=== PATIENT | female | born 1985 | race Caucasian/White ===

== ENCOUNTER 2020-08-09 12:32 | Inpatient (IN) | payer MEDICAID, SELFPAY ==
[2020-08-09 13:07] VITALS: BP 145/110; PULSE 85; RESP 18; TEMP 36.7; O2SAT 96; BMI 49.6
[2020-08-09 13:42] LABS: Basophils # 0.1 10^3/uL (0.0-0.1); Basophils % 0.7 %; Eosinophils # 0.3 10^3/uL (0.0-0.8); Hematocrit 48.1 % (37.0-47.0); Hemoglobin 15.6 g/dL (11.5-15.3); Lymphocytes # 2.3 10^3/uL (0.8-4.8); Lymphocytes % 23.2 %; Mean Corpuscular HGB Conc 32.4 g/dL (30.0-36.0); Mean Corpuscular Hemoglobin 28.2 pg (28.0-34.0); Mean Corpuscular Volume 86.8 fL (81-99); Mean Platelet Volume 9.5 fL (7.4-10.4); Monocytes # 0.6 10^3/uL (0.2-0.9); Monocytes % 6.4 %; Neutrophils # 6.62 10^3/uL (1.8-7.7); Nucleated Red Blood Cells % 0 %; Platelet Count 388 10^3/cmm (130-400); Red Blood Count 5.54 10^6/uL (4.1-5.3); Red Cell Distribution Width 12.8 % (12.1-15.1)
[2020-08-09 14:00] LABS: Alanine Aminotransferase 36 U/L (0-33); Albumin Level 4.4 g/dL (3.5-5.2); Alkaline Phosphatase 90 IU/L (35-105); Anion Gap 17.1 (5-19); Aspartate Amino Transferase 22 U/L (0-32); Blood Urea Nitrogen 10 mg/dL (6-20); Calcium 9.3 mg/dL (8.5-10.5); Carbon Dioxide 22 mmol/L (22-29); Chloride 102 mmol/L (98-107); Globulin 3.3 g/dL (1.3-4.6); Glomerular Filtration Rate 115.1 mL/min (90-130); Glucose 86 mg/dL (65-115); Osmolality Calculated 282 mOsm/kg (285-295); Potassium 4.1 mmol/L (3.5-5.1); Sodium 137 mmol/L (136-145); Total Bilirubin 0.7 mg/dL (0.15-1.2); Total Protein 7.7 g/dL (6.6-8.7)
[2020-08-09 14:00] LABS: HCG Qualitative Urine. Negative (Negative); Urine Appearance Hazy (CLEAR); Urine Color Yellow (Yellow)
[2020-08-09 14:01] LABS: Add Urine Microscopic? YES; Bilirubin Urine Neg (Negative); Blood Urine Neg (Negative); Glucose Urine UA Norm (Normal); Ketones Urine Negative (Negative); Leukocyte Esterase Urine 1+ (Negative); Nitrate Urine Negative (Negative); Protein Urine Neg (Negative); Urobilinogen Urine Norm (Negative); pH Urine 5 (5-7)
[2020-08-09 14:05] LABS: Amphetamines Screen Urine Negative (Negative); Barbiturates Screen Urine Negative (Negative); Benzodiazepines Screen Urine Negative (Negative); Cocaine Screen Urine Negative (Negative); Opiate Screen Urine Negative (Negative); PCP Screen Urine Negative (Negative); THC Screen Urine Negative (Negative)
[2020-08-09 14:08] LABS: Bacteria Urine 3+ /hpf; Squamous Epithelial Cell Urine 15-25 /hpf (0-5)
[2020-08-09 14:13] LABS: RBC Urine 0-4 /hpf (0-2)
[2020-08-09 14:14] LABS: Add Urine Culture? No; Trichomonas Urine 1+ /hpf
[2020-08-09 14:21] LABS: Acetaminophen < 5.0 ug/mL (10-30); Alcohol Level < 10 mg/dL (0-10); Salicylate < 0.3 mg/dL (3-10)
--- NOTE | 2020-08-09 14:41 | W.ED.PSYCH ---
HPI - Psych General: Chief Complaint: Psychiatric Symptoms Stated Complaint: MHE Time Seen by Provider: 08/09/20 13:13 Source: patient Mode of arrival: ambulatory Limitations: no limitations History of Present Illness: HPI Narrative: Patient is a 35-year-old female with a history of depression who currently takes Lexapro but presents to the emergency department with worsening of depressive symptoms. She states over the last week her symptoms have been getting worse and yesterday she had a mental breakdown . She has been having thoughts of suicide but does not have a plan at this time. She is very concerned because she has never had thoughts of suicide before. She has never had admission for psychiatric illness in the past. She is here because she would like to be evaluated and possibly admitted to the neuropsychiatric unit. complaint: suicidal ideation Onset (ago): week(s) (1) Duration: constant and getting worse History of same: No Relieving factors: none Exacerbating factors: none Associated psychiatric symptoms: depression and suicidal ideation Associated symptoms: Reports depression and suicidal ideation; Deny auditory hallucinations, visual hallucinations, delusions, homicidal ideation or racing thoughts Treatments prior to arrival: none If self harm: admits thoughts of self harm Review of Systems General: Reports: 10 or more systems reviewed and unremarkable except in HPI and below Psych: Reports: depression and suicidal ideation; Denies: visual hallucinations, auditory hallucinations or homicidal ideation Physical Exam Const: COMMON NORMALS: no acute distress, average body habitus, patient oriented x3, no limitations, healthy appearing, alert and well nourished HENMT: COMMON NORMALS: normocephalic, atraumatic and moist oral mucous membranes HEAD & SCALP: normocephalic and atraumatic Neck/C-Spine: COMMON NORMALS: no meningeal signs and no JVD Chest: COMMONS NORMALS: normal inspection of the chest and normal palpation of entire chest wall Resp: COMMON NORMALS: normal respiratory effort, No retractions, No use of accessory muscles, clear to auscultation bilaterally and percussion normal AUSCULTATION: clear to auscultation bilaterally PERCUSSION: percussion normal Cardio: COMMON NORMALS: no JVD, regular rate, regular rhythm, S1 normal heart sound present, S2 normal heart sound present, No gallops present (Cardio), No clicks present (Cardio), No murmurs present (Cardio), No rub (Cardio) and Peripheral pulses 2+ throughout RATE: regular rate RHYTHM: regular rhythm HEART SOUNDS: S1 normal heart sound present and S2 normal heart sound present PERIPHERAL PULSES: Peripheral pulses 2+ throughout GI: COMMON NORMALS: Normal to inspection, nondistended, normoactive bowel sounds present, Soft to palpation, non-tender, No hepatosplenomegaly present, no masses and no bruits PALPATION: Yes Soft to palpation and Yes No hepatosplenomegaly present Extremity: COMMON NORMALS: normal to inspection, full ROM, capillary refill normal, no calf tenderness and no pedal edema Neuro: COMMON NORMALS: patient oriented x3 SENSORIUM/ORIENTATION: Yes alert MENINGEAL SIGNS: Yes no meningeal signs Psych: COMMON NORMALS: mental status grossly normal THOUGHT CONTENT: No delusions Skin: COMMON NORMALS: no rashes or lesions noted, no wounds, turgor normal, no jaundice, no petechiae and no mottling GENERAL SKIN EXAM: no rashes or lesions noted and turgor normal Course Reevaluation(s): Reevaluation #1: Discussed her lab findings with her including trichomonas in her urine. Advised that I will treat for that with oral metronidazole. She is however medically cleared and is fixed to be admitted to the neuropsychiatric unit for further evaluation and management. She voiced understanding and is in agreement with the plan. Time: 14:35 Consultations: Consultation #1: Discussed the patient with Dr. King, psychiatrist and he kindly accepted patient to his service. Time: 14:29 Vital Signs: Vital signs: Vital Signs Temperature 98.0 F 08/09/20 13:07 Pulse Rate 82 08/09/20 15:04 Respiratory Rate 16 08/09/20 15:04 Blood Pressure 145/110 08/09/20 13:07 Pulse Oximetry 97 08/09/20 15:04 MDM - Psych MDM Narrative: Medical decision making narrative: 35-year-old female patient who presents to the emergency department with suicidal ideation. She is medically cleared and is admitted to the neuropsychiatric unit for further evaluation and management. Her urine also showed trichomonas and she is treated for this also. She was counseled that her partner(s) needs to get treated to. Medical Records: Attestation: I reviewed the patient's medical records. Lab Data: Attestation: I reviewed the patient's lab results. Labs: Lab Results 08/09/20 08/09/20 08/09/20 Range/Units 13:35 13:35 13:45 WBC 10.0 (4.0-10.0) 10^3/ uL RBC 5.54 H (4.1-5.3) 10^6/u L Hgb 15.6 H (11.5-15.3) g/dL Hct 48.1 H (37.0-47.0) % MCV 86.8 (81-99) fL MCH 28.2 (28.0-34.0) pg MCHC 32.4 (30.0-36.0) g/dL RDW 12.8 (12.1-15.1) % Plt Count 388 (130-400) 10^3/c mm MPV 9.5 (7.4-10.4) fL Neut % (Auto) 66.0 % Lymph % (Auto) 23.2 % [place] % (Auto) 6.4 % Eos % (Auto) 3.0 % Baso % (Auto) 0.7 % Neut # (Auto) 6.62 (1.8-7.7) 10^3/u L Lymph # (Auto) 2.3 (0.8-4.8) 10^3/u L [place] # (Auto) 0.6 (0.2-0.9) 10^3/u L Eos # (Auto) 0.3 (0.0-0.8) 10^3/u L Baso # (Auto) 0.1 (0.0-0.1) 10^3/u L Nucleated RBC % (a uto) 0 % Nucleated RBCs # 0.0 /100WBC Sodium 137 (136-145) mmol/L Potassium 4.1 (3.5-5.1) mmol/L Chloride 102 (98-107) mmol/L Carbon Dioxide 22 (22-29) mmol/L Anion Gap 17.1 (5-19) BUN 10 (6-20) mg/dL Creatinine 0.6 (0.5-0.9) mg/dL GFR Calculation 115.1 (90-130) mL/min Glucose 86 (65-115) mg/dL Calculated Osmolal ity 282 L (285-295) mOsm/k g Calcium 9.3 (8.5-10.5) mg/dL Total Bilirubin 0.7 (0.15-1.2) mg/dL AST 22 (0-32) U/L ALT 36 H (0-33) U/L Alkaline Phosphata se 90 (35-105) IU/L Total Protein 7.7 (6.6-8.7) g/dL Albumin 4.4 (3.5-5.2) g/dL Globulin 3.3 (1.3-4.6) g/dL HCG, Qual Negative (Negative) Urine Color (Yellow) Urine Appearance (CLEAR) Urine pH (5-7) Ur Specific Gravit y (1.005-1.030) Urine Protein (Negative) Urine Glucose (UA) (Normal) Urine Ketones (Negative) Urine Blood (Negative) Urine Nitrate (Negative) Urine Bilirubin (Negative) Urine Urobilinogen (Negative) mg/dL Ur Leukocyte Lianne ase (Negative) Urine RBC (0-2) /hpf Urine WBC (0-5) /hpf Ur Squamous Epith Cells (0-5) /hpf Amorphous Sediment Urine Bacteria (NONE) /hpf Urine Trichomonas /hpf Salicylates < 0.3 L (3-10) mg/dL Urine Opiates Scre en (Negative) ng/mL Acetaminophen < 5.0 L (10-30) ug/mL Ur Barbiturates Sc reen (Negative) ng/mL Ur Phencyclidine S crn (Negative) ng/mL Ur Amphetamines Sc reen (Negative) ng/mL U Benzodiazepines Scrn (Negative) ng/mL Urine Cocaine Scre en (Negative) ng/mL U Marijuana (THC) Screen (Negative) ng/mL Ethyl Alcohol < 10 (0-10) mg/dL 08/09/20 08/09/20 Range/Units 13:45 13:45 WBC (4.0-10.0) 10^3/ uL RBC (4.1-5.3) 10^6/u L Hgb (11.5-15.3) g/dL Hct (37.0-47.0) % MCV (81-99) fL MCH (28.0-34.0) pg MCHC (30.0-36.0) g/dL RDW (12.1-15.1) % Plt Count (130-400) 10^3/c mm MPV (7.4-10.4) fL Neut % (Auto) % Lymph % (Auto) % [place] % (Auto) % Eos % (Auto) % Baso % (Auto) % Neut # (Auto) (1.8-7.7) 10^3/u L Lymph # (Auto) (0.8-4.8) 10^3/u L [place] # (Auto) (0.2-0.9) 10^3/u L Eos # (Auto) (0.0-0.8) 10^3/u L Baso # (Auto) (0.0-0.1) 10^3/u L Nucleated RBC % (a uto) % Nucleated RBCs # /100WBC Sodium (136-145) mmol/L Potassium (3.5-5.1) mmol/L Chloride (98-107) mmol/L Carbon Dioxide (22-29) mmol/L Anion Gap (5-19) BUN (6-20) mg/dL Creatinine (0.5-0.9) mg/dL GFR Calculation (90-130) mL/min Glucose (65-115) mg/dL Calculated Osmolal ity (285-295) mOsm/k g Calcium (8.5-10.5) mg/dL Total Bilirubin (0.15-1.2) mg/dL AST (0-32) U/L ALT (0-33) U/L Alkaline Phosphata se (35-105) IU/L Total Protein (6.6-8.7) g/dL Albumin (3.5-5.2) g/dL Globulin (1.3-4.6) g/dL HCG, Qual (Negative) Urine Color Yellow (Yellow) Urine Appearance Hazy A (CLEAR) Urine pH 5 (5-7) Ur Specific Gravit y 1.020 (1.005-1.030) Urine Protein Neg (Negative) Urine Glucose (UA) Norm (Normal) Urine Ketones Negative (Negative) Urine Blood Neg (Negative) Urine Nitrate Negative (Negative) Urine Bilirubin Neg (Negative) Urine Urobilinogen Norm (Negative) mg/dL Ur Leukocyte Lianne ase 1+ H (Negative) Urine RBC 0-4 H (0-2) /hpf Urine WBC 5-10 H (0-5) /hpf Ur Squamous Epith Cells 15-25 H (0-5) /hpf Amorphous Sediment Not Reportable Urine Bacteria 3+ H (NONE) /hpf Urine Trichomonas 1+ H /hpf Salicylates (3-10) mg/dL Urine Opiates Scre en Negative (Negative) ng/mL Acetaminophen (10-30) ug/mL Ur Barbiturates Sc reen Negative (Negative) ng/mL Ur Phencyclidine S crn Negative (Negative) ng/mL Ur Amphetamines Sc reen Negative (Negative) ng/mL U Benzodiazepines Scrn Negative (Negative) ng/mL Urine Cocaine Scre en Negative (Negative) ng/mL U Marijuana (THC) Screen Negative (Negative) ng/mL Ethyl Alcohol (0-10) mg/dL Discharge Plan Discharge Patient Disposition: Admitted As Inpatient Admit Provider: Jame King Clinical Impression: Suicidal ideation, Trichomonas vaginalis infection Condition: Stable Coding Level of Care Code ED Head Field Hockey Coach for Rajani Fwd Exam Comprehensive
[2020-08-09] MEDS: metroNIDAZOLE 500 MG Tablet PO ×2 (15:03→18:38)
[2020-08-09 15:04] VITALS: PULSE 82; RESP 16; O2SAT 97
[2020-08-09 20:20] VITALS: BP 108/76; PULSE 82; RESP 17; TEMP 36.8; O2SAT 96
[2020-08-10 06:00] VITALS: BP 114/76; PULSE 77; RESP 17; TEMP 36.8; O2SAT 93
[2020-08-10] MEDS: metroNIDAZOLE 500 MG Tablet PO ×2 (09:28→18:47)
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
[2020-08-10] MEDS: propranolol 20 mg Tablet PO ×2 (13:33→21:00)
[2020-08-10] MEDS: escitalopram 10 mg Tablet 20 MG PO (13:34)
[2020-08-10 14:00] VITALS: BP 114/76; PULSE 77; RESP 17; TEMP 36.8; O2SAT 93
--- NOTE | 2020-08-10 21:40 | PC.NURSE ---
BEHAVIOR PT SEEMED UPSET THAT HER ROOMMATE WENT HOME, SHE IS IN HER ROOM, READING INTERMITTENTLY, HEAD DOWN, AND WITHDRAWN THIS EVENING. PT STATES, LIFE SUCKS SOMETIMES . PT EXPRESSED TO NURSE THAT SHE STARTED NEW MEDICATION, AND IT HAS NOT WORKED YET. PT REPORTS MEDICATION IS NOT MAKING HER TIRED, HOWEVER IT APPEARS THAT SHE IS PHYSICALLY DRAINED. COOPERATIVE WITH NURSING STAFF. PT HAD A CONVERSATION ON THE PHONE, HER ANXIETY BECAME INCREASED, AFFECT WAS TEARFUL/UPSET, MED NURSE NOTIFIED OF SYMPTOMS WITNESSED. PT HUNG UP THE PHONE, CRYING, AND WENT TO HER ROOM QUIETLY,THIS NURSE WAITED A FEW MOMENTS, APPROACHED PATIENT, WHO STATED SHE NEEDS SOMETHING TO SLEEP. DELIVERED REQUEST TO MED NURSE 2ND TIME. MEDS RECEIVED VIA MED NURSE. PT IS SLEEPING AT THIS TIME.
[2020-08-10 22:00] VITALS: BP 115/80; PULSE 79; RESP 18; TEMP 36.6; O2SAT 97
[2020-08-10] MEDS: hyDROXYzine 25 mg Capsule 50 MG PO (22:06)
[2020-08-10] MEDS: trazodone 50 mg Tablet PO (22:06)
--- NOTE | 2020-08-11 00:34 | PC.NURSE ---
The patient requested medication for anxiety and insomnia. Vistaril 50 mg po and Trazodone 50 mg po given at 2206. At this time in bed sleeping.
[2020-08-11 06:00] VITALS: BP 111/68; PULSE 66; RESP 16; TEMP 36.6; O2SAT 97; BMI 49.6
[2020-08-11] MEDS: escitalopram 10 mg Tablet 20 MG PO (08:50)
[2020-08-11] MEDS: propranolol 20 mg Tablet PO ×3 (08:50→20:34)
[2020-08-11] MEDS: metroNIDAZOLE 500 MG Tablet PO ×2 (08:50→20:35)
[2020-08-11 13:58] VITALS: BP 123/78; PULSE 71; RESP 15; TEMP 36.9; O2SAT 94
--- NOTE | 2020-08-11 15:09 | PM.NPN ---
Subjective NPU Subjective: Interval history: Erin presents today reporting that things are not feeling any worse, but denies any dramatic changes 1 day removed from her increase in her medication. She is adjusting to the unit denies any significant problems or issues. We discussed that the social work team will be present tomorrow and able to assist her in making sure that she is connected to the right services to make sure that she has all the resources available to be successful in her recovery. Mental Status Exam MSE Comments: This is a morbidly obese, olive skinned female with adequate grooming and eye contact in hospital scrubs. No abnormal movements except for psychomotor retardation. Cooperative with exam in no acute distress. Speech was decreased rate and volume. Mood described as okay, affect subdued. Thought process organized. Thought content: Patient denied suicidal or homicidal ideation, there are no delusions reported noted, she denied any auditory visualizations. Attention and concentration appeared intact and memory appeared reliable but none were formally tested. Is alert and oriented x3. Insight and judgment appear fair, impulse control is limited, but improving. Vitals/I&O/Wt Last Vital Signs Temp 98.5 F 08/11/20 13:58 Pulse 71 08/11/20 13:58 Resp 15 08/11/20 13:58 BP 123/78 08/11/20 13:58 Pulse Ox 94 08/11/20 13:58 Weight last 48 hrs Weight 127.006 kg Data NPU : 08/09/20 13:35 08/09/20 13:35 A&P Additional A&P Information (1) Suicidal ideation: (2) Trichomonas vaginalis infection: (3) Major depressive disorder, recurrent, severe without psychotic features: (4) Anxiety disorder, unspecified: Additional A&P Information This is a 35-year-old female with a long history of trauma and question of PTSD who presents with depression that has been resistant to multiple medications but without significant history of therapy and outpatient services in a behavioral health setting who presents having some suicidal thoughts and open to making some medication adjustments. 1. Continue current medication. 2. Continue every 15 minute checks for safety. 3. Encourage individual, group and milieu therapies. 4. Encourage continuation of mental health services including therapy after discharge. Involuntary Hold Information 96 Hour Hold: 96 Hour Involuntary Admission: No Attestations NPU Medical Necessity Statement*: Inpatient hospitalization is medically necessary and the clinically appropriate intervention at this time. We will monitor medications and make changes as indicated. Likely length of stay 1-3 days. Coding Level of Care Code Acute Veterinarian Small Animal for Rajani Foreman
[2020-08-11 21:02] VITALS: BP 116/76; PULSE 65; RESP 20; TEMP 36.4; O2SAT 95
[2020-08-12 06:00] VITALS: BP 113/61; PULSE 62; RESP 18; TEMP 36.6; O2SAT 95
[2020-08-12] MEDS: propranolol 20 mg Tablet PO ×3 (08:28→20:53)
[2020-08-12] MEDS: metroNIDAZOLE 500 MG Tablet PO ×2 (08:28→20:53)
[2020-08-12] MEDS: escitalopram 10 mg Tablet 20 MG PO (08:28)
--- NOTE | 2020-08-12 13:01 | PM.NPN ---
Subjective NPU Subjective: Interval history: Erin presents today starting to show some improvement in her psychomotor retardation. She reports that she can she is feeling better now and is starting to make plans moving forward. She reports that her safety plan would likely be to go and stay with her mom want to get things together. We agreed we would work with is working to make sure that appropriate follow-up is in place to avoid difficulties. We discussed discharge by tomorrow. Mental Status Exam MSE Comments: This is a morbidly obese, olive skinned female with adequate grooming and eye contact in hospital scrubs. No abnormal movements except for improving psychomotor retardation. Cooperative with exam in no acute distress. Speech was decreased rate and volume. Mood described as I think better, affect less subdued. Thought process organized. Thought content: Patient denied suicidal or homicidal ideation, there are no delusions reported noted, she denied any auditory visualizations. Attention and concentration appeared intact and memory appeared reliable but none were formally tested. Is alert and oriented x3. Insight and judgment appear fair, impulse control is improving. Vitals/I&O/Wt Last Vital Signs Temp 97.9 F 08/12/20 06:00 Pulse 62 08/12/20 06:00 Resp 18 08/12/20 06:00 BP 113/61 08/12/20 06:00 Pulse Ox 95 08/12/20 06:00 Weight last 48 hrs Weight 127.006 kg Data NPU : 08/09/20 13:35 08/09/20 13:35 A&P Additional A&P Information (1) Suicidal ideation: (2) Trichomonas vaginalis infection: (3) Major depressive disorder, recurrent, severe without psychotic features: (4) Anxiety disorder, unspecified: Additional A&P Information This is a 35-year-old female with a long history of trauma and question of PTSD who presents with depression that has been resistant to multiple medications but without significant history of therapy and outpatient services in a behavioral health setting who presents having some suicidal thoughts and open to making some medication adjustments. 1. Continue current medication. 2. Continue every 15 minute checks for safety. 3. Encourage individual, group and milieu therapies. 4. Encourage continuation of mental health services including therapy after discharge. Involuntary Hold Information 96 Hour Hold: 96 Hour Involuntary Admission: No Attestations NPU Medical Necessity Statement*: Inpatient hospitalization is medically necessary and the clinically appropriate intervention at this time. We will monitor medications and make changes as indicated. Plan for discharge in the morning. Coding Level of Care Code Acute Mattress And Boxsprings Supervisor for Rajani Foreman
[2020-08-12 14:00] VITALS: BP 133/85; PULSE 71; RESP 16; TEMP 36.6; O2SAT 95
[2020-08-12 20:13] VITALS: BP 129/76; PULSE 60; RESP 15; TEMP 37.1; O2SAT 95
[2020-08-12] MEDS: hyDROXYzine 25 mg Capsule 50 MG PO (21:51)
[2020-08-12] MEDS: trazodone 50 mg Tablet PO (21:51)
--- NOTE | 2020-08-12 21:52 | PC.NURSE ---
prn VISTARIL 50MG PO GIVEN FOR ANXIETY, TRAZODONE 50MG PO GIVEN TO HELP PT SLEEP,
[2020-08-13 06:00] VITALS: BP 115/71; PULSE 63; RESP 14; TEMP 36.4; O2SAT 98
[2020-08-13] MEDS: metroNIDAZOLE 500 MG Tablet PO (06:42)
[2020-08-13] MEDS: escitalopram 10 mg Tablet 20 MG PO (08:16)
[2020-08-13] MEDS: propranolol 20 mg Tablet PO ×2 (08:16→13:42)
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
[2020-08-13 14:28] VITALS: BP 115/71; PULSE 63; RESP 14; TEMP 36.4; O2SAT 98
== END 2020-08-13 14:50 | disposition home or self-care (01) | DRG 885 ==
LOC: ER 13:22 → NP 15:08
PROVIDERS: Admitting Provider Psychiatry & Neurology Psychiatry; Emergency Provider Family Medicine; Visit Provider Psychiatry & Neurology Psychiatry
DX: F33.2 Major depressive disorder, recurrent severe without psychotic features (principal); R45.851 Suicidal ideations; Z68.42 Body mass index [BMI] 45.0-49.9, adult; A59.01 Trichomonal vulvovaginitis; F41.9 Anxiety disorder, unspecified; F17.210 Nicotine dependence, cigarettes, uncomplicated; E66.01 Morbid (severe) obesity due to excess calories
CPT/HCPCS: 80053; 80306; 80307; 81001; 81025; 85025; 99285